=== PATIENT | female | born 1995 | race Caucasian/White ===

== ENCOUNTER 2022-03-31 00:19 | Inpatient (IN) | payer BC, OTHER ==
[2022-03-31 00:46] VITALS: BMI 24.3
[2022-03-31] MEDS ORDERED: Penicillin G Potassium 5 MILL.UNITS VIAL ONE (00:50)
[2022-03-31] MEDS ORDERED: Promethazine HCl 25 MG/ML VIAL IM PRN (00:54)
[2022-03-31] MEDS ORDERED: Ondansetron PF 4 MG/2 ML Vial IVP PRN (00:54)
[2022-03-31] MEDS ORDERED: Lidocaine 1% (PF) 30 ML VIAL SC PRN (00:54)
[2022-03-31] MEDS ORDERED: hydrALAZINE 20 MG/ML VIAL SLOW IVP PRN (00:54)
[2022-03-31] MEDS ORDERED: NS w/ Oxytocin 30 units 500 ML IV SCH (01:00)
[2022-03-31] MEDS ORDERED: Penicillin G Potassium 5 MILL.UNITS in Sodium Chloride 0.9% 100 ML IVPB SCH (01:00)
[2022-03-31 01:19] LABS: Hemoglobin 11.7 g/dL (12.0-15.5); Mean Corpuscular HGB CONC 33.4 g/dL (32.0-36.0); Mean Corpuscular Volume 86.6 fl (81.6-98.3); Mean Platelet Volume 9.6 fl (7.4-10.4); Platelet Count 180 10x3/uL (150-450); RBC Distribution Width 13.4 % (11.5-14.5); Red Blood Cell (RBC) Count 4.04 10x6/uL (3.90-5.03); White Blood Cell (WBC) Count 13.7 10x3/uL (3.5-10.5)
[2022-03-31] MEDS ORDERED: Misoprostol 200 MCG TAB ONE (01:54)
[2022-03-31] MEDS ORDERED: Methylergonovine 0.2 MG/ML VIAL ONE (01:55)
[2022-03-31] MEDS ORDERED: Tranexamic Acid 1,000 MG/10 ML VIAL ONE (01:55)
[2022-03-31 01:57] LABS: HBSAg Index 0.26 S/CO (0-0.99); Hep B Surf Ag Non-Reactive S/CO (NonReactive); Syphilis Antibody Nonreactive (Nonreactive); Syphilis Antibody Index 0.03 S/CO (<1.00 Non-Reactive)
[2022-03-31 04:57] LABS: SARS-CoV-2 NAA Rapid Test Not Detected (NotDetected)
[2022-03-31] MEDS ORDERED: Penicillin G 2.5 MILL.units 2.5 MILL.UNITS in Premix Bag 1 BAG IVPB SCH (05:00)
[2022-03-31] MEDS ORDERED: Bisacodyl 10 MG SUPP PR PRN (05:36)
[2022-03-31] MEDS ORDERED: Milk Of Magnesia 30 ML UDCUP PO PRN (05:36)
[2022-03-31] MEDS ORDERED: Boostrix 0.5 ML (Tdap) VIAL (>/=7 yrs of age) IM ONE (05:36)
[2022-03-31] MEDS: Ibuprofen 800 MG TAB PO SCH ×3 (05:56→21:44)
[2022-03-31] MEDS ORDERED: Cepastat Lozenges 1 LOZ PO PRN (08:05)
[2022-03-31] MEDS: Lactated Ringer's 1,000 ML IV SCH ×2 (12:58→15:27)
[2022-03-31] MEDS: Docusate 100 MG CAP PO SCH ×2 (12:59→21:44)
[2022-03-31] MEDS: Ferrous Sulfate 325 MG TAB PO SCH ×2 (12:59→15:27)
[2022-04-01] MEDS: Lactated Ringer's 1,000 ML IV SCH (04:38)
[2022-04-01] MEDS: Ibuprofen 800 MG TAB PO SCH ×2 (05:08→14:06)
[2022-04-01 07:53] VITALS: BP 106/65; TEMP 97.8
[2022-04-01] MEDS: Docusate 100 MG CAP PO SCH (09:41)
[2022-04-01] MEDS: Ferrous Sulfate 325 MG TAB PO SCH (09:42)
== END 2022-04-01 17:02 | disposition home or self-care (01) | DRG 807 ==
LOC: CSHLD/OP 00:19 → CSHLD 00:52 → CSHPED 12:45
PROVIDERS: ADMIT Student in an Organized Health Care Education/Training Program; ATTEND Student in an Organized Health Care Education/Training Program
PROC: 10E0XZZ Delivery of Products of Conception, External Approach (ICD-10-PCS; principal; 2022-03-31)
DX: O99.824 Streptococcus B carrier state complicating childbirth (principal); Z37.0 Single live birth; Z3A.40 40 weeks gestation of pregnancy; Z20.822 Contact with and (suspected) exposure to COVID-19; Z91.040 Latex allergy status
CPT/HCPCS: 85027; 86780; 86850; 86900; 86901; 87340; 99285; J2540; J2590; U0002

== ENCOUNTER 2024-01-26 21:01 | Inpatient (IN) | payer BC, OTHER ==
[2024-01-26] MEDS ORDERED: Ondansetron PF 4 MG/2 ML Vial IVP PRN (21:08)
[2024-01-26] MEDS ORDERED: Misoprostol 200 MCG TAB PR PRN (21:08)
[2024-01-26] MEDS ORDERED: Diphenoxylate HCl/Atropine Tablet PO PRN (21:08)
[2024-01-26] MEDS ORDERED: Methylergonovine 0.2 MG/ML VIAL IM PRN (21:08)
[2024-01-26] MEDS ORDERED: Lidocaine 1% (PF) 30 ML VIAL SC PRN (21:08)
[2024-01-26] MEDS ORDERED: Tranexamic Acid 1,000 MG/10 ML VIAL IVP PRN (21:08)
[2024-01-26] MEDS ORDERED: hydrALAZINE 20 MG/ML VIAL SLOW IVP PRN (21:08)
[2024-01-26] MEDS ORDERED: Promethazine HCl 25 MG/ML VIAL IM PRN (21:08)
[2024-01-26] MEDS ORDERED: Carboprost 250 MCG/ML AMP IM PRN (21:08)
[2024-01-26] MEDS ORDERED: Penicillin G Potassium 5 MILL.UNITS in Sodium Chloride 0.9% 100 ML IVPB SCH (21:15)
[2024-01-26] MEDS ORDERED: Oxytocin 30 units/NS 500 ML 500 ML IV SCH ×2 (21:15)
[2024-01-26 21:24] VITALS: BMI 26.6
[2024-01-26 21:43] LABS: Hematocrit 34.2 % (34.9-44.5); Hemoglobin 11.3 g/dL (12.0-15.5); Mean Corpuscular Hemoglobin 27.1 pg (27.0-33.0); Mean Platelet Volume 10.3 fL (7.4-10.4); Platelet Count 189 10x3/uL (150-450); RBC Distribution Width 14.7 % (11.5-14.5); Red Blood Cell (RBC) Count 4.17 10x6/uL (3.90-5.03); White Blood Cell (WBC) Count 12.2 10x3/uL (3.5-10.5)
[2024-01-26 22:31] LABS: Analyzer IN Cardio CS NICU; RapidComm Collect By RN; pH (Cord, venous) 7.364 (7.250-7.350)
[2024-01-26 22:33] LABS: Analyzer IN Cardio CS NICU; RapidComm Collect By RN
[2024-01-26 22:56] LABS: HBsAg Index 0.17 S/CO (0-0.99); Hep B Surf Ag - L&D Non-Reactive S/CO (NonReactive); Syphilis Antibody Nonreactive (Nonreactive); Syphilis Antibody Index 0.03 S/CO (<1.00 Non-Reactive)
[2024-01-27] MEDS: Oxytocin 30 units/NS 500 ML 500 ML IV SCH (00:01)
[2024-01-27] MEDS: Lactated Ringer's 1,000 ML IV SCH (00:01)
[2024-01-27] MEDS ORDERED: Penicillin G 2.5 MILL.units 2.5 MILL.UNITS in Premix 1 BAG IVPB SCH (01:00)
[2024-01-27 01:07] LABS: Hematocrit 28.8 % (34.9-44.5); Hemoglobin 9.4 g/dL (12.0-15.5); Mean Corpuscular HGB CONC 32.6 g/dL (32.0-36.0); Mean Corpuscular Hemoglobin 27.4 pg (27.0-33.0); Mean Platelet Volume 9.9 fL (7.4-10.4); Platelet Count 181 10x3/uL (150-450); RBC Distribution Width 14.8 % (11.5-14.5); Red Blood Cell (RBC) Count 3.43 10x6/uL (3.90-5.03)
[2024-01-27 01:24] LABS: D-Dimer Test 2.61 mcg/mL (0.19-0.50); INR-International Normal Ratio 0.9; PTT 30.8 sec (22.0-33.0); Prothrombin Time 10.3 sec (9.5-12.1)
[2024-01-27] MEDS ORDERED: Lanolin Ointment 7 GM TUBE TOP PRN (02:41)
[2024-01-27] MEDS ORDERED: Oxytocin 30 units/NS 500 ML 500 ML IV SCH (02:41)
[2024-01-27] MEDS ORDERED: Misoprostol 200 MCG TAB VAG PRN (02:41)
[2024-01-27] MEDS ORDERED: hydrALAZINE 20 MG/ML VIAL SLOW IVP PRN (02:41)
[2024-01-27] MEDS ORDERED: Bisacodyl 10 MG SUPP PR PRN (02:41)
[2024-01-27] MEDS ORDERED: Benzocaine-Menthol 82.5 ML CAN TOP PRN (02:41)
[2024-01-27] MEDS ORDERED: Ondansetron PF 4 MG/2 ML Vial IVP PRN (02:41)
[2024-01-27] MEDS ORDERED: Milk Of Magnesia 30 ML UDCUP PO PRN (02:41)
[2024-01-27] MEDS ORDERED: HYDROcodone/Acetaminophen 5/325 mg Tablet PO PRN (02:41)
[2024-01-27] MEDS ORDERED: Boostrix 0.5 ML (Tdap) VIAL (>/=7 yrs of age) IM ONE (02:41)
[2024-01-27] MEDS: Penicillin G Potassium 5 MILL.UNITS VIAL ONE (03:07)
[2024-01-27 05:11] LABS: Hematocrit 27.6 % (34.9-44.5)
[2024-01-27] MEDS: Ibuprofen 800 MG TAB PO SCH (07:41)
[2024-01-27] MEDS: Ferrous Sulfate 325 MG TAB PO SCH (07:42)
[2024-01-27] MEDS: Docusate 100 MG CAP PO SCH (07:42)
[2024-01-27] MEDS: Prenatal Vitamin 1 TAB PO SCH (07:42)
[2024-01-27] MEDS ORDERED: Iron Sucrose Complex 200 MG in Sodium Chloride 0.9% 100 ML IVPB SCH (11:00)
[2024-01-27] MEDS: Sodium Ferric Gluconate 250 MG in Sodium Chloride 0.9% 250 ML 250 ML IVPB SCH (14:06)
[2024-01-27 20:13] VITALS: BP 132/60; TEMP 98.1
[2024-01-28] MEDS: HYDROcodone/Acetaminophen 5/325 mg Tablet PO PRN (09:27)
== END 2024-01-28 12:50 | disposition home or self-care (01) | DRG 806 ==
LOC: CSHLD 21:01 → CSHPP 01-27 02:23
PROVIDERS: ADMIT Obstetrics & Gynecology; ATTEND Obstetrics & Gynecology
PROC: 10E0XZZ Delivery of Products of Conception, External Approach (ICD-10-PCS; principal; 2024-01-26)
DX: O48.0 Post-term pregnancy (principal); D62 Acute posthemorrhagic anemia; Z37.0 Single live birth; O72.1 Other immediate postpartum hemorrhage; Z3A.41 41 weeks gestation of pregnancy; Z91.040 Latex allergy status; O99.824 Streptococcus B carrier state complicating childbirth; O66.0 Obstructed labor due to shoulder dystocia; O99.02 Anemia complicating childbirth; O69.81X0 Labor and delivery complicated by cord around neck, without compression, not applicable or unspecified
CPT/HCPCS: 36415; 82805; 85027; 85049; 85300; 85362; 85384; 85610; 85730; 86780; 86850; 86900; 86901; 87340; J2590; J2916; J7050; J7120